=== PATIENT | female | born 1995 | race Caucasian/White ===

== ENCOUNTER 2018-03-10 14:17 | Emergency (ER) | payer OTHER ==
[2018-03-10] MEDS ORDERED: Adacel Vial IM ONE ×2 (14:49→15:07)
[2018-03-10] MEDS ORDERED: MOTRIN 400 MG PO ONE (14:49)
--- NOTE | 2018-03-10 14:57 | ERPHSYRPT ---
- History of Present Illness Time Seen by Provider: 03/10/18 14:38 Source: patient Exam Limitations: no limitations Physician History: Pt states, she left her right thumb accidentally under a press machine, injured crush injury ti the tip of her right thumb at work. She denies other injury or complaints, her tetanus is not up to date. Occurred: just prior to arrival Method of Injury: direct blow Quality: constant Severity of Pain-Max: moderate Severity of Pain-Current: moderate Extremities Pain Location: thumb: right Modifying Factors: Improves With: movement Associated Symptoms: none Allergies/Adverse Reactions: No Known Drug Allergies Allergy (Unverified 03/10/18 14:51) Home Medications: Escitalopram Oxalate [Escitalopram Oxalate] 10 mg PO DAILY 03/10/18 [History] Norgestimate-Ethinyl Estradiol [Sprintec] 1 ea PO DAILY 03/10/18 [History] - Review of Systems Constitutional: No Symptoms Musculoskeletal: Other (right thumb pain) All Other Systems: Reviewed and Negative - Past Medical History Neurological History: No Pertinent History - Female History Hx Now: No - Nursing Vital Signs Nursing Vital Signs: Initial Vital Signs Temperature 98.9 F 03/10/18 14:21 Pulse Rate 80 03/10/18 14:21 Respiratory Rate 18 03/10/18 14:21 Blood Pressure 153/98 03/10/18 14:21 O2 Sat by Pulse Oximetry 99 03/10/18 14:21 Pain Scale Pain Intensity 9 - Physical Exam General Appearance: no apparent distress Eyes, Ears, Nose, Throat Exam: normal ENT inspection Neck Exam: normal inspection, non-tender Cardiovascular/Respiratory Exam: chest non-tender, normal breath sounds, regular rate/rhythm, heart sounds normal Abdominal Exam: non-tender, soft Back Exam: normal inspection Hand Exam: soft tissue tenderness (right thumb: 6-7 mm superficial laceration at the nailbed, no nail injury, there is a small ( 2 mm) blood blister on the tip of her thumb, IP with full motions, pain free, no proximal injury.) Neuro/Tendon Exam: normal motor functions Mental Status Exam: alert, oriented x 3 Skin Exam: normal color, warm, dry SpO2 Interpretation: normal Oxygen Delivery: Room Air - Course Nursing assessment & vital signs reviewed: Yes - Radiology Exams Hand X-ray Interpretation: Reviewed by me, Negative Ordered Tests: Active Orders 24 hr Category Date Time Status FINGER(S) Stat Exams 03/10/18 15:07 Completed Medication Summary Discontinued Medications Generic Name Dose Route Start Last Admin Trade Name Linda PRN Reason Stop Dose Admin Diphtheria/Tetanus/Acell Pertussis 0.5 ml 03/10/18 14:49 03/10/18 15:09 Adacel Vial IM 03/10/18 14:50 0.5 ml .ONCE ONE Administration Diphtheria/Tetanus/Acell Pertussis Confirm 03/10/18 15:07 Adacel Vial Administered 03/10/18 15:08 Dose 0.5 ml IM .STK-MED ONE Ibuprofen 400 mg 03/10/18 14:49 03/10/18 15:10 Motrin 400 Mg PO 03/10/18 14:50 400 mg STAT ONE Administration Ibuprofen Confirm 03/10/18 15:07 Motrin 400 Mg Administered 03/10/18 15:08 Dose 400 mg .ROUTE .STK-MED ONE - Progress Progress: improved Progress Note: 03/10/18 15:41 Pt was educated about X ray report, she is being discharged in good condition, to rest x 1-2 days with elevated hand, clean area with antiseptic solution daily , and return if severe pain, swelling or redness. - Departure Time of Disposition: 15:42 Departure Disposition: Home Clinical Impression: Thumb contusion Qualifiers: Encounter type: initial encounter Damage to nail status: without damage Laterality: right Qualified Code(s): S60.011A - Contusion of right thumb without damage to nail, initial encounter Laceration of thumb Qualifiers: Encounter type: initial encounter Damage to nail status: without damage Foreign body presence: without foreign body Laterality: right Qualified Code(s) : S61.011A - Laceration without foreign body of right thumb without damage to nail, initial encounter Clinical Impression: (Ruled Out): Laceration of thumb with damage to nail Condition: Stable Critical Care Time: No Instructions: Finger Sprain (DC), Laceration Repair With Glue (DC) Additional Instructions: Rest with elevated hand, return if severe pain, swelling, redness of the thumb!
[2018-03-10] MEDS ORDERED: MOTRIN 400 MG ONE (15:07)
--- NOTE | 2018-03-10 15:12 | XRAY ---
Indication: Power tool injury. Comparison: None 3 views of the right thumb demonstrates normal bones, articulation, and soft tissues.
[2018-03-10 15:25] VITALS: BP 137/91; PULSE 67; O2SAT 98
== END 2018-03-10 16:00 | disposition home or self-care (01) ==
LOC: ED 14:17
DX: S60.011A Contusion of right thumb without damage to nail, initial encounter (principal); S61.011A Laceration without foreign body of right thumb without damage to nail, initial encounter; W31.1XXA Contact with metalworking machines, initial encounter; Y99.0 Civilian activity done for income or pay
CPT/HCPCS: 73140; 80307; 90471; 90715; 99283; A9270-GY